=== PATIENT | male | born 1980 | race Hispanic/Latino ===

== ENCOUNTER 2024-08-08 22:06 | Emergency (ER) | payer SELFPAY ==
[~2024-08-08] VITALS: Ht 167.6 cm; Wt 79.4 kg
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
[2024-08-08] MEDS: TETRACAINE HCL 0.5% 4 ML OPHTH SOLN OP ONE (22:39)
[2024-08-08] MEDS: FLUORESCEIN SODIUM 1 STRIP STRIP OP ONE (22:40)
[2024-08-08 23:17] VITALS: BP 126/72; PULSE 70; RESP 16; TEMP 98.1; O2SAT 98
[2024-08-08] MEDS: teTANUS/diphthERIA TOXOID [ADULT] 0.5 ML VIAL IM ONE (23:22)
[2024-08-08] MEDS: ibuPROFEN 600 MG TABLET PO ONE (23:23)
[2024-08-08] MEDS ORDERED: MOXI3DRO12 OP (23:23)
[2024-08-08] MEDS ORDERED: IBUP-2070 PO (23:23)
[2024-08-08] MEDS: MOXIFLOXACIN HCL 0.5% 3ML DROPS OD ONE (23:29)
== END 2024-08-08 23:39 | disposition home or self-care (01) ==
LOC: EDH 22:06
DX: H16.001 Unspecified corneal ulcer, right eye (principal)
CPT/HCPCS: 90471; 90714; 99283

== ENCOUNTER 2025-01-18 20:13 | Emergency (ER) | payer BC ==
[~2025-01-18] VITALS: Ht 170.2 cm; Wt 77.1 kg
[~2025-01-18 20:13] MED LIST: IBUP-1492 PO; MOXI3DRO12 OP
[2025-01-18 20:45] LABS: SARS-CoV-2, RNA, NAAT NEGATIVE SARS CoV-2 (NEGATIVE)
[2025-01-18 20:49] LABS: IMMATURE GRANULOCYTE ABSOLUTE 0.02 K/uL (0-1); NUCLEATED RED BLOOD CELLS 0.0 % (0.0-0.19); PLATELET COUNT (AUTO) 253 K/uL (130-400); RED BLOOD CELL COUNT(AUTO) 4.15 MIL/uL (4.50-6.20); RED CELL DISTRIBUTION WIDTH 12.8 % (11.0-15.5); WHITE BLOOD COUNT (AUTO) 8.6 K/uL (4.8-10.8)
[2025-01-18 20:49] LABS: INFLUENZA TYPE A Negative For Type A (NEGATIVE); INFLUENZA TYPE B Negative For Type B (NEGATIVE)
--- NOTE | 2025-01-18 20:56 | ERN ---
ED Note History of Present Illness Stated Complaint: C/O COUGH,CONGESTION, SCRATCHY THROAT, W/ CP, SOB Chief Complaint: Chest Pain Time Seen by MD: 20:15 Time Seen by Midlevel: 20:15 Dictation: The patient is a 44-year-old male with no past medical history who presents to the emergency with complains of chest pain onset this morning. Patient reports pain to be constant. Reports that he has been having productive cough for 1 week. Reports sore throat. Denies shortness of breath. Denies any fevers. Allergies: Coded Allergies: No Known Allergies (Unverified Allergy, Unknown, 08/08/24) Home Meds Active Scripts Moxifloxacin HCl (Moxifloxacin) 0.5 % Drops, 1 DROP OP q 2 hr while awake, #3 ML 0 Refills Prov:JJ UNDERWOOD [facility] 08/08/24 Ibuprofen (Ibuprofen) 600 Mg Tablet, 600 MG PO Q6H PRN for PAIN, #15 TAB 0 Re fills Prov:JJ UNDERWOOD [facility] 08/08/24 Past Medical History Past Medical History: No Pertinent History Surgical History: None Social History: Negative, Lives with family RN Note Reviewed/Agreed w/PFSH: Yes Review of System Dictation Constitutional: Negative for fever,chills, and weight loss Eyes: Negative for injury, pain,redness, and discharge ENT: Negative for injury,pain or swelling positive for sore throat Cardiovascular: Negative for palpitations, and edema positive for chest pain Respiratory: Negative for shortness of breath,and wheezing, positive for cough Abdomen/GI: Negative for abdominal pain, nausea, vomiting, diarrhea, and constipation Back: Negative for injury and pain : Negative for injury, bleeding and discharge MS/Extremity: Negative for injury and deformity Skin: Negative for rash, and discoloration Neuro: Negative for headache, weakness, numbness, tingling, and seizure Psych: Negative for suicide ideation, homicidal ideation, and hallucinations Initial Vital Sign VS Vital Signs Date Time Temp Pulse Resp B/P (MAP) Pulse Ox O2 Delivery O2 Flow Rate FiO2 01/18/25 20:15 98.1 79 20 98/73 98 Room Air 01/18/25 21:10 0 21 Physical Exam Dictation Vital Signs reviewed General Appearance: Alert, oriented x 3, no acute distress, well developed, nourished. Head and Face: non-traumatic. Eyes: PERRL, pink conjunctivas, eyelid no trauma, anterior chamber with arcus senilis. Ears: Pinnas intact and no signs of trauma or erythema ear canals clear and no discharge TM no erythema Nose: No discharge, no bleeding. Oropharynx: Mouth normal, tongue pink. pharynx clear,no erythema, tonsils no exudates, no abscesses noted, mucous membrane moist Neck: Supple, non-tender, no thyromegaly, no masses, no JVD, no bruits Breast:Deferred Chest:No tenderness, no crepitus, no paradoxical movement, no retractions Lungs:Clear, well-ventilated, symmetric, no rales, no wheezing, no rhonchi, no stridor, good breath sounds bilaterally Heart: Regular rate, regular rhythm, no murmur, no gallops Vascular: no peripheral edema, Abdomen: Soft, positive bowel sounds, nondistended, no guarding, nontender, no rebound, no masses no hepatomegaly, no splenomegaly, no Medley's sign, no hernias. Rectal: Deferred Genital: Deferred Neurological: Normal speech, motor function intact, sensory function intact Musculoskeletal: Neck nontender, full range of motion, back nontender, full range of motion, Extremities: nontender, full range of motion Skin: Color pink, dry, no turgor, no rash, no lacerations, no abrasions, no contusions. Lymphatic: Deferred Results (Laboratory/Radiology) Laboratory/Radiology Laboratory Tests Test 01/18/25 20:20 01/18/25 20:43 01/18/25 22:03 Influenza Type A Antigen Negative For Type A Influenza Type B Antigen Negative For Type B SARS-CoV-2, RNA, NAAT NEGATIVE SARS CoV-2 Group A Streptococcus Rapid negative (NEGATIVE) White Blood Count 8.6 K/uL (4.8-10.8) Red Blood Count 4.15 MIL/uL (4.50-6.20) L Hemoglobin 13.1 g/dL (14.0-18.0) L Hematocrit 37.4 % (42-54) L Mean Corpuscular Volume 90.1 fL (79-99) Mean Corpuscular Hemoglobin 31.6 pg (27.0-33.0) Mean Corpuscular Hemoglobin Concent 35.0 g/dL (32.0-36.0) Red Cell Distribution Width 12.8 % (11.0-15.5) Platelet Count 253 K/uL (130-400) Mean Platelet Volume 9.8 fL (7.5-10.5) Immature Granulocyte % (Auto) 0.2 % (0-1) Neutrophils (%) (Auto) 59.7 % (40.0-77.0) Lymphocytes (%) (Auto) 27.2 % (21.0-51.0) Monocytes (%) (Auto) 9.0 % (3.0-13.0) Eosinophils (%) (Auto) 3.3 % (0.0-8.0) Basophils (%) (Auto) 0.6 % (0.0-5.0) Neutrophils # (Auto) 5.1 K/uL (1.8-7.7) Lymphocytes # (Auto) 2.3 K/uL (1.0-4.8) Monocytes # (Auto) 0.8 K/uL (0.1-1.0) Eosinophils # (Auto) 0.28 K/uL (0.00-0.70) Basophils # (Auto) 0.05 K/uL (0.00-0.20) Absolute Immature Granulocyte (auto 0.02 K/uL (0-1) Nucleated Red Blood Cells 0.0 % (0.0-0.19) Sodium Level 140 mmol/L (136-145) Potassium Level 3.6 mmol/L (3.5-5.1) Chloride Level 105 mmol/L (101-111) Carbon Dioxide Level 27 mmol/L (21-32) Blood Urea Nitrogen 24 mg/dL (7-18) H Creatinine 1.1 mg/dL (0.5-1.3) Glomerular Filtration Rate Calc 84 mL/min (>90) Random Glucose 92 mg/dL (70-105) Total Calcium 8.4 mg/dL (8.5-10.1) L Magnesium Level 2.00 mg/dL (1.80-2.40) Total Creatine Kinase 168 U/L (21-232) Troponin I High Sensitivity 4 ng/L (4-75) Urine Opiates Screen NEGATIVE (NEGATIVE) Urine Barbiturates Screen NEGATIVE (NEGATIVE) Urine Phencyclidine Screen NEGATIVE (NEGATIVE) Urine Amphetamines Screen NEGATIVE (NEGATIVE) Urine Benzodiazepines Screen NEGATIVE (NEGATIVE) Urine Cocaine Screen NEGATIVE (NEGATIVE) Urine Marijuana (THC) Screen NEGATIVE (NEGATIVE) REASON: cp ORDERING PHYSICIAN: ULYSSES BAI PROCEDURE: CXR1VW - CHEST 1VW EXAM: CR Chest, single view. CLINICAL HISTORY: Chest pain. COMPARISON: None. FINDINGS: The lungs show no infiltrate or other acute findings. No pleural effusion or pneumothorax. The cardiomediastinal silhouette is within normal limits. No acute osseous abnormality. IMPRESSION: No acute cardiopulmonary pathology is evident. /[facility] Labs Reviewed?: Yes EKG: (+) rhythm (Sinus rhythm) EKG Comment: Date:01/18/2025 Time:2011 Ventricular rate:76 [place] interval:134 QRS duration:82 QT/QTc:338/382 EKG interpretation: Sinus rhythm Reviewed by ED Attending no STEMI ED Course ED Course Orders Procedure Category Date Status Time 12 Lead Ekg Tracing- EKG 01/18/25 Logged Technical 20:23 Covid Rna Naat LAB 01/18/25 Complete 20:23 Influenza Type A & B, LAB 01/18/25 Complete Rapid 20:23 Cbc With Differential LAB 01/18/25 Complete 20:28 Chest 1vw RAD 01/18/25 Resulted 20:28 Magnesium LAB 01/18/25 Complete 20:28 Creatine Kinase, Total LAB 01/18/25 Complete 20:28 Troponin I High LAB 01/18/25 Complete Sensitivity 20:28 Basic Metabolic Panel LAB 01/18/25 Complete 20:28 Rapid (Group A Strep) LAB 01/18/25 Complete 20:28 Drug Screen Urine LAB 01/18/25 Complete 20:28 Ketorolac PHA 01/18/25 Complete Tromethamine 30mg/Ml 20:30 Guaifenesin-Codeine PHA 01/18/25 Complete Syrup 5ml (Robitussi 20:30 Current Medications Medications (Trade) Dose Ordered Sig/Radha Route PRN Reason Start Time Stop Time Status Last Admin Dose Admin Guaifenesin/ Codeine Phosphate (RobiTUSSin AC 5 ML SYRUP) 10 ml ONCE ONCE PO 01/18/25 20:30 01/18/25 20:33 DC 01/18/25 21:35 Ketorolac Tromethamine (toRADol) 30 mg ONCE ONCE IM 01/18/25 20:30 01/18/25 20:33 DC 01/18/25 21:35 Vital Signs Date Time Temp Pulse Resp B/P (MAP) Pulse Ox O2 Delivery O2 Flow Rate FiO2 01/18/25 23:01 98.4 70 16 111/69 96 Room Air* 0 21 01/18/25 21:10 98.4 67 16 107/65 98 Room Air* 0 21 01/18/25 20:15 98.1 79 20 98/73 98 Room Air HEART Score Response (Comments) Value History: Low suspicion (0) 0 EKG: Repolarization changes 1 Age: 45-65yrs (+1) 1 Risk Factors: No known risk factors (0) 0 Initial Troponin: Normal limit (0) 0 Total 2 Medical Decision Making MDM The patient is a 44-year-old male with no past medical history who presents to the emergency with complains of chest pain onset this morning. Patient reports pain to be constant. Reports that he has been having productive cough for 1 week. Reports sore throat. Denies shortness of breath. Denies any fevers. CBC showed no leukocytosis, mild normocytic anemia, chemistry showed no electrolyte imbalance, negative troponin, negative CK level, toxicology negative, serology negative. Chest x-ray showed no acute infiltrates. Patient's symptoms most likely related to musculoskeletal. Patient has tenderness to palpation. Has been dealing with a cough. Was stable vital signs, no hypoxemia, no tachycardia. Patient with no risk factors pain on physical exam patient is in no acute distress, nontoxic appearance, respirations, clear lung sounds. Patient will be discharged to follow up with PCP. Differential diagnosis: Pneumonia, ACS, costochondritis, pneumothorax,uri Need for hospitalization: Patient does not meet criteria for hospitalization. There are no social concerns with this patient. DX & DISP Disposition: Discharge Departure Impression: Primary Impression: Viral URI with cough Additional Impression: Costochondritis Condition: Stable Additional Instructions: Your labs were unremarkable, your xray did not show any pneumonia, please follow up with PCP in 1-2 days. If anything worsens please return to ER. FOLLOW-UP WITH PRIMARY CARE PROVIDER IN 1 TO 2 DAYS. TAKE MEDICATIONS DIRECTED HERE IN THE EMERGENCY ROOM. OKAY TO CONTINUE HOME MEDICATIONS UNLESS OTHERWISE DISCUSSED DURING YOUR VISIT IN THE EMERGENCY ROOM TODAY. RETURN TO YOUR NEAREST EMERGENCY ROOM IF SYMPTOMS WORSEN OR IF THERE IS NO IMPROVEMENT. CALL 911 IF YOU NEED IMMEDIATE ASSISTANCE. TAKE TYLENOL [id number] NEEDED AND IF NO CONTRAINDICATIONS ARE PRESENT. INCREASE ORAL HYDRATION. A WOUND CULTURE OR URINE CULTURE WAS ORDERED HERE IN THE EMERGENCY ROOM DEPARTMENT PLEASE FOLLOW-UP WITH PRIMARY CARE PROVIDER AND ADVISE THEM TO GET REPEAT PORTS FROM OUR FACILITY. IF YOU HAD ANY [place] WRAP/SPLINTS THAT WERE APPLIED HERE, PLEASE DO NOT REMOVE THEM UNTIL YOU SEE YOUR PRIMARY CARE OR SPECIALTY. Referrals: SELF,REFERRAL (PCP) Time of Disposition: 22:57 I have reviewed the case, and I agree with, Diagnosis and Plan I performed a substantive portion of the visit. I have reviewed and personally made and approve the management plan that is documented in the notes by myself with RUBEN/resident. I acknowledged full responsibility for the patient's management plan. ULYSSES BAI Jan 18, 2025 20:56 ALAN ZHOU DO Jan 19, 2025 01:07
[2025-01-18 21:05] LABS: CREATININE 1.1 mg/dL (0.5-1.3); GLOMERULAR FILTR. RATE CALC 84.0 mL/min (>90); GLUCOSE,RANDOM 92.0 mg/dL (70-105); SODIUM SERUM 140.0 mmol/L (136-145); UREA NITROGEN, BLOOD 24.0 mg/dL (7-18)
[2025-01-18 21:10] LABS: CREATINE KINASE, TOTAL 168.0 U/L (21-232)
[2025-01-18 22:34] LABS: AMPHET/METH SCREEN,URINE NEGATIVE (NEGATIVE); BARBITURATE SCREEN, URINE NEGATIVE (NEGATIVE); CANNABINOID SCREEN,URINE NEGATIVE (NEGATIVE); COCAINE SCREEN,URINE NEGATIVE (NEGATIVE)
--- NOTE | 2025-01-18 22:40 | HMCIMG ---
EXAM: CR Chest, single view. CLINICAL HISTORY: Chest pain. COMPARISON: None. FINDINGS: The lungs show no infiltrate or other acute findings. No pleural effusion or pneumothorax. The cardiomediastinal silhouette is within normal limits. No acute osseous abnormality. IMPRESSION: No acute cardiopulmonary pathology is evident. /[place]
[2025-01-18 23:01] VITALS: BP 111/69; PULSE 70; RESP 16; TEMP 98.4; O2SAT 96
--- NOTE | 2025-01-19 04:37 | EKG ---
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
== END 2025-01-18 23:18 | disposition home or self-care (01) ==
LOC: EDH 20:13
DX: J06.9 Acute upper respiratory infection, unspecified (principal); B97.89 Other viral agents as the cause of diseases classified elsewhere; M94.0 Chondrocostal junction syndrome [Tietze]; Z20.822 Contact with and (suspected) exposure to COVID-19
CPT/HCPCS: 99284; 71045; 87635; 82550; 83735; 84484; 80048; 80305; 85025; 87880; 87804 ×2; 36415; 96372; 93005; J1885